=== PATIENT | male | born 1955 | race Caucasian/White ===

== ENCOUNTER 2016-10-17 18:35 | Inpatient (IN) | payer SELFPAY ==
[~2016-10-17] VITALS: Ht 186.7 cm; Wt 118.6 kg
[2016-10-17] MEDS ORDERED: Heparin 5,000 Unit/mL Inj IVPUSH PRN (19:20)
[2016-10-17] MEDS ORDERED: Heparin 5,000 Unit/mL Inj IVPUSH ONE (19:20)
[2016-10-17] MEDS ORDERED: Ondansetron 2 mg/mL 2 mL Inj IVPUSH PRN (19:20)
[2016-10-17 19:56] LABS: BASOPHILS % (AUTO) 0.6 % (0-3); EOSINOPHILS % (AUTO) 2.1 % (0-5); MONOCYTES % (AUTO) 11.5 % (4-12); Mean Corpuscular Hemoglobin 30.4 pg (27.0-35.0); Mean Corpuscular Volume 92.9 fL (81-100); Platelet Count 171 bil/L (150-400)
[2016-10-17 20:00] VITALS: BP 132/91; PULSE 94; RESP 18; O2SAT 91
--- NOTE | 2016-10-17 20:00 | NUR ---
Admission Pt states he came to urgent care due to shortness of breath and a "fast heart rate" Pt aware that he has bilat pulmonary emboli and will be given heparin IV to decrease his blood clotting time Pt agrees to notify nurse for any pain. He currently has no pain. Family at bedside. Tolerates PO fluid Telemetry is currently sinus Care ongoing
[2016-10-17 20:10] LABS: INR 1.03 ratio
[2016-10-17 20:29] LABS: TROPONIN T 0.154 ug/L (0.0-0.011)
--- NOTE | 2016-10-17 20:30 | PCM.HPMED ---
Subjective Date of Service Oct 17, 2016 Primary Provider: Admitting Physician: Cecily Vick MD Primary Care Physician: Giovanni Attending Physician: Cecily Vick MD Chief Complaint: Shortness of breath HISTORY was OBTAINED FROM PATIENT / LinguastatTECH NOTES History of present illness 61-year-old male with left leg swelling in July 2016 after playing basketball, no immobility, no trauma, presented to urgent care today for shortness of breath and palpitations for about 6 days, CT of the chest demonstrated bilateral pulmonary embolism. left leg swelling has improved but intermittently worse w/ standing. With recent back ache/pain, not bedridden, less active. no weight loss. no colonoscopy. distant left toe was reattached surgically after trauma. Review of Systems - none of the following - F/C/sick contact / wt change/ HANKINS / lightheaded / dizziness / sob / cough / cp / acid reflux / n/v/diarrhea / bleeding/bruising change in voiding / yeast infections / rash ambulates FAMILY HX no VTE, no miscarriages SOCIAL HX no smoking MEDICATIONS no medications, no testosterone Past Medical/Surgical HX left toe traumatic amputation, reattached Allergies Coded Allergies: No Known Allergies (Verified Allergy, Unknown, 10/17/16) Exam Vital Signs Vital Sign - Last Date Time Temp Pulse Resp B/P Pulse Ox O2 Delivery O2 Flow Rate FiO2 10/17/16 20:00 36.7 94 18 132/91 91 Room Air Lab and Diagnostics Labs Exam on admission room air NAD A and O x 3 mood affect WNL NC/AT no icterus no injected eyes EOMI PERRL /no pharyngeal lesions/ no oral lesions / hearing intact Supple neck CTAB equal chest rise / no accessory muscle use / speaks in full sentences / no rrw RRR S1 S2 / no mrg / 2+ radial pulses Soft nt nd + BS no hepatosplenomegaly No edema no cyanosis no ecchymosis of lower extremities No rash / no jaundice ROLON CNII-XII grossly intact symmetrical No dysmetria of bilateral upper and lower limbs Strength grossly intact of bilateral upper and lower limbs Sensation grossly symmetrical of bilateral upper and lower limbs symmetrical facies EKG SR no ST elevation Trop elevated LFTnormal Imaging PROCEDURE: CT ANGIO CHEST PULMONARY EMBOLISM ([id number]) INDICATIONS: DIFFICULTY BREATHING, EVALUATE FOR PULMONARY EMBOL TECHNIQUE: After the administration of intravenous contrast, 2 mm thick sections acquired from the pulmonary apices to the posterior costophrenic angles. 3-dimensional maximum intensity projection (MIP) coronal and sagittal reformats were then acquired through the thorax. For radiation dose reduction, the following was used: automated exposure control, adjustment of mA and/or kV according to patient size. COMPARISON: None. FINDINGS: Image quality: Excellent. Pulmonary arteries: There are numerous bilateral lobar and segmental pulmonary emboli involving the upper and lower lobes bilaterally. Lungs and pleura: Lungs are clear. No pleural effusions or pneumothorax. Central and peripheral airways are patent. Mediastinum: Heart size is normal, without pericardial effusion. There is leftward bowing of the interventricular septum suggesting increased right heart pressure No mediastinal or hilar adenopathy. Thoracic aorta is normal in caliber and enhancement. Bones and chest wall: No suspicious bony lesions. Ribs and thoracic spine appear intact throughout. Thyroid gland unremarkable. No axillary or supraclavicular adenopathy. Abdomen: Possible hepatic cyst with water attenuation on image 155 series 5 a left apically nonspecific. Additional 5 mm hypodensity in the left lobe on image 126 is too small to characterize definitively. Similar-appearing hepatic lesion on image 117 in the central liver Nonspecific 8mm left adrenal nodule, too small to characterize definitively. Moderate hiatal hernia. Incidentally noted vertebral body hemangiomas. IMPRESSION: Multiple bilateral extensive upper and lower lobe pulmonary emboli, with CT evidence of increased right heart pressure. Nonspecific left adrenal nodule. Recommend followup in one year with abdominal CT Hepatic cysts although some of these are too small to characterize definitively. Moderate hiatal hernia. Findings personally telephoned and discussed with the patient's referring clinician, Neri SANDOVAL 1833 hours 10/17/16. Result Diagram: 10/17/161943 Assessment & Plan Active issues and reason for admission Bilateral extensive PE, prior history consistent with DVT, presented with shortness of breath, left leg edema after basketball in 07/2016 -- Pending thrombophilia labs -- Pending Echo, troponin serial -- Heparin drip, anticipate Coumadin, lacks PCP lacks insurance -- No overt lung nodules consistent with cancer, consider CT abdomen pelvis to evaluate for cancer as a source of PE, pt knows to follow up w/ colonoscopy Hiatal hernia, when necessary Tums Left adrenal nodule, follow-up [address], did not discuss w/ patient yet Chronic issues known prior to admission, present on admission KATHIE, CPAP Diet cardiac diabetic-change if labs do not confirm diabetes or dyslipidemia DVT prophylaxis heparin drip Code full Disposition inpatient, needs PCP and insurance Assessment and plan were discussed with patient Cecily Vick MD Oct 17, 2016 20:29 Cecily Vick MD Oct 17, 2016 20:29
[2016-10-17] MEDS: Heparin 25K Unit/500mL 0.45 NS 25,000 UNIT in IV Premix 1 EACH IV SCH (20:43)
[2016-10-17 22:54] LABS: APPEARANCE,URINE CLEAR (CLEAR,HAZY); COLOR,URINE YELLOW (YELLOW); OCCULT BLOOD,URINE MODERATE (NEGATIVE); PH,URINE 5.5 (5.0-8.0); UROBILINOGEN,URINE NORMAL (NORMAL)
[2016-10-18] VITALS (8 sets, daily range): BP systolic 108–160; BP diastolic 73–108; PULSE 63–84; RESP 18–20; O2SAT 90–96
[2016-10-18] MEDS ORDERED: [UNRECOGNIZED DRUG - REMARK] (01:21)
[2016-10-18] MEDS: Heparin 25K Unit/500mL 0.45 NS 25,000 UNIT in IV Premix 1 EACH IV SCH ×2 (06:06→18:51)
[2016-10-18 09:20] LABS: BASOPHILS % (AUTO) 0.9 % (0-3); EOSINOPHILS % (AUTO) 3.7 % (0-5); MONOCYTES % (AUTO) 11.5 % (4-12); Mean Corpuscular Hemoglobin 31.2 pg (27.0-35.0); Mean Corpuscular Volume 92.2 fL (81-100); Platelet Count 158 bil/L (150-400)
--- NOTE | 2016-10-18 11:05 | NUR ---
Social Work: Screening Data: Pt is a 61 y/o male admitted for bilateral pulmonary embolism. Pt's PCP is not listed, pt's insurance is self pay. EMR reviewed. Pt discussed in rounds, possible d/c today or tomorrow. GAMING MANAGER will meet with pt regarding messi care application and RCA for lack of insurance. GAMING MANAGER will continue to follow if needs arise. Assessment: Pt who is independent at baseline. Plan: Pt will d/c home when medically stable. GAMING MANAGER will meet with pt regarding messi care application and RCA for lack of insurance. GAMING MANAGER will continue to follow if needs arise. MARS Carlton
--- NOTE | 2016-10-18 15:22 | PCM.PNMED ---
Subjective Date of Service Oct 18, 2016 [place] Kumar is a healthy 61-year-old male with no past medical history who presented for evaluation of shortness of breath and tachycardia. Patient reports that he has had increasing shortness of breath and tachycardia since 1 week ago. He also endorses pleuritic chest pain and dizziness, but denies any fevers,shortness of breath, weight changes, night sweats, or diaphoresis. He reports this episode began somewhat suddenly would find triggers. He had been previously healthy, has not had any surgeries and has not been immobile. At urgent care he was saturating from 93-94% on room air and was noted to be tachycardic so a CTA chest was obtained. Results showed multiple bilateral pulmonary emboli with CT evidence of right heart strain and other incidental findings. He was then directly admitted to the hospital and started on a heparin drip. This morning patient reports he is still mildly short of breath, but denies any chest pain or fevers. He reports that in June, after a basketball game, he did notice some swelling in his left lower leg behind his knee. He did not have any trauma, but this swelling has been intermittently worse since. He has also noticed some lower back pain that he did not experience before. He denies any family history of coagulopathies or bleeding disorders, denies any recent surgeries, denies any smoking history. He has not had a PCP prior to this, and reports he was not on any medications. Exam Vital Signs Vital Sign - Last Date Time Temp Pulse Resp B/P Pulse Ox O2 Delivery O2 Flow Rate FiO2 10/18/16 12:59 36.9 81 20 127/84 94 Room Air Intake and Output 10/17/16 10/17/16 10/18/16 Cumulative From/Thru 15:00 23:00 07:00 10/17/16 20:00 - 10/18/16 05:56 Intake Total 311 ml 311 ml Balance 311 ml 311 ml IV Total 311 ml 311 ml Exam General: Well-developed male in no acute distress, alert and oriented 3 HEENT: Normocephalic, atraumatic, PERRLA, EOMI, no telangiectasias noted, oropharynx nonerythematous Neck: Soft, central, nontender, full range of motion CV: Regular rate and rhythm with soft systolic murmur, no JVD noted Respiratory: CTAB, normal effort, no wheezing or crackles Abdomen: Soft, obese, nontender, nondistended normoactive bowel sounds MSK: Strength grossly intact and equal the clubbing or edema noted. There are multiple splinter hemorrhages noted under his nails Neuro: Nerves II-12 grossly intact, no tremors or focal weakness noted, gait not tested Skin: Warm, dry, intact, no rashes noted Psych: Appropriate mood and affect IVs and Medications Medications Reviewed: Medications were reviewed in detail Lab and Diagnostics Result Diagram: 10/18/1683410/18/16834 Assessment & Plan José is a healthy 61-year-old male with no past medical history who presented for evaluation of shortness of breath and tachycardia x 1 week. Found to have unprovoked bilateral pulmonary emboli. Unprovoked bilateral pulmonary emboli, POA, acute As demonstrated on CTA chest. Patient's left lower extremity edema likely due to DVT also Heparin drip per PE protocol initiated - consider bridging therapy for anticoagulation Thrombophilia labs pending- consider hematology consult Troponins initially elevated but improving, likely due to heart strain Echocardiogram pending - if further evidence of right heart strain, will consider catheterization Incidental CT findings, POA Left adrenal nodule, vertebral body hemangiomas, hepatic cyst Obstructive sleep apnea, POA Patient brought in his own CPAP Dispo: Due to patient's medical complexity and decompensation, will require at least 2 nights for stabilization and treatment Pain Evaluation: Adequate Pain Control VTE Prophylaxis: Other (heparin drip) Resuscitation Status: CPR: Attempt Resuscitation Time spent 35 minutes Attending Statement I have seen and evaluated patient at bedside, in addition to directly supervising care provided by resident physician. I agree with above documentation. Further discussion with tree loader meat Dr Ruby, yields plan of close observation, continued Heparin drip over night, and consideration of transfer tomorrow for possible percutaneous thrombectomy if laborer carpentry dock who provides this procedure is available. Kvng Hubbard DO Oct 18, 2016 15:00 Brandon Lemos DO Oct 18, 2016 18:39
--- NOTE | 2016-10-18 15:30 | DRSVH ---
[facility] [address] [place] [address] Echocardiogram Report Name: KEZIA SOARES Date: Height: 73.5 in Hospital Exam Location: [facility] Weight: 256 lb Gender: Male BSA: 2.4 m2 : 1955 Age: 61 yrs BP: 119/80 mmHg Reason For Study: Pulmonary- Embolism Ordering Physician: Performed By: Corey León Referring Physician: LELO MOREL Interpretation Summary There is mild concentric left ventricular hypertrophy. The left ventricular cavity is small. Left ventricular systolic function is normal. The ejection fraction is estimated to be 60-65%. Flattened septum is consistent with RV pressure/volume overload. Assessment of diastolic parameters indicates a relaxation abnormality of the left ventricle, consistent with normal filling pressures. The right ventricle is severely dilated. Right ventricular systolic function is severely reduced. The right ventricular systolic pressure is estimated at 43 mmHg assuming a right atrial pressure of 8 mm Hg. The left atrium is mildly dilated. The right atrium is severely dilated. There is mild to moderate tricuspid regurgitation. There is mild to moderate pulmonic regurgitation. The ascending aorta is moderately enlarged. The aortic arch is moderately enlarged. The aortic root is mildly dilated. Procedure: A two-dimensional transthoracic echocardiogram with color flow and Doppler was performed. The study quality was technically adequate. There is no prior echocardiogram noted for this patient. The patient was in normal sinus rhythm during the exam. Left Ventricle: The left ventricular cavity is small. There is mild concentric left ventricular hypertrophy. Left ventricular systolic function is normal. The ejection fraction is estimated to be 60-65%. Flattened septum is consistent with RV pressure/volume overload. Assessment of diastolic parameters indicates a relaxation abnormality of the left ventricle, consistent with normal filling pressures. Right Ventricle: The right ventricle is severely dilated. Right ventricular systolic function is severely reduced. Atria: The left atrium is mildly dilated. The right atrium is severely dilated. The interatrial septum bows toward left atrium consistent with elevated right atrial pressure. The interatrial septum is intact with no evidence for an atrial septal defect. Mitral Valve: The mitral valve is normal. There is no mitral regurgitation noted. Aortic Valve: The aortic valve is trileaflet. The aortic valve opens well. No aortic regurgitation is present. Tricuspid Valve: The tricuspid valve is normal. There is mild to moderate tricuspid regurgitation. The right ventricular systolic pressure is estimated at 43 mmHg assuming a right atrial pressure of 8 mm Hg. Pulmonic Valve: The pulmonic valve leaflets are thin and pliable; valve motion is normal. There is mild to moderate pulmonic regurgitation. Great Vessels: The aortic root is mildly dilated. The ascending aorta is moderately enlarged. The aortic arch is moderately enlarged. The pulmonary artery is normal size. The IVC is dilated (diameter is greater than 2.1 cm) yet it collapses greater than 50% with a sniff. This suggests a right atrial pressure of 8 mm Hg. Pericardium/ Pleura There is no pericardial effusion. There is no pleural effusion. MMode/2D Measurements & Calculations LVIDd: 3.7 cm RA long axis LVOT diam: 2.6 cm LVIDs: 2.3 cm LA A2 area: 28.0 cm Ao root diam FS: 36.6 % LA A4 area: 24.9 cm RA area IVSd: 1.4 cm LA length (vol) asc Aorta Diam LVPWd: 1.3 cm : 30.8 cm LA vol: 91.0 ml RA vol Ao Arch Diam (Prox LA vol index : 132.ml Trans): 4.0 cm RA : 55.0 mm2 IVC diam: 2.7 cm LV grier. diameter/BSA LV sys. diameter/BSA (cm/m^2): 1.5 (cm/m^2): 0.97 Doppler Measurements & Calculations Ao V2 max MV E max marcos MV E/A: 0.58 TR max marcos : 125.5 cm/sec : 48.0 cm/sec Med Peak E' Marcos : 295.1 cm/sec Ao max PG MV A max marcos TR max P.8 mmHg : 6.3 mmHg : 82.7 cm/sec E/E' med: 12.7 Ao mean PG Lat Peak E' Marcos LVOT Max Marcos E/E' lat: 9.3 : 99.1 cm/sec E/e' average JANELLE(I,D): 3.9 cm sev ratio MV dec time Ao V2 mean LV V1 max PG JANELLE indexed to BSA : 0.25 sec : 79.1 cm/sec (cm^2/m^2): 1.6 Ao V2 VTI LV V1 VTI: 16.6 cm JANELLE(V,D): 4.3 cm2 Reading Physician:THA
[2016-10-18] MEDS ORDERED: HYDROcodone-APAP 5-325 mg Tablet PO PRN (18:15)
--- NOTE | 2016-10-18 18:31 | NUR ---
Heparin Drip/Activity: Patients heparin drip continues to run at 18ml/hr. Patients PTT is in therapeutic range 60.3 and 63.7. His next lab draw is in the morning. Patient had ECHO today. is evaluating plan of care for the results of the ECHO. Patient has had no issues today. He has been in bed . He is using Urinal at bedside and has not been ambulating . His left swollen leg is elevated on the bed.
[2016-10-19 01:31] VITALS: BP 114/79; PULSE 68; RESP 20; O2SAT 91
--- NOTE | 2016-10-19 03:32 | NUR ---
Heparin Drip Patient on 18units/Hr Heparin drip. Labs for next ptt are scheduled for this AM. Patient was in therapeutic range of 61 at 2245. Patient sleeps with CPAP at night, has slept most of shift with no complaints of pain.
[2016-10-19 04:33] VITALS: BP 128/81; PULSE 65; RESP 20; O2SAT 92
--- NOTE | 2016-10-19 05:48 | CONS ---
[address] [address] CONSULTATION REPORT PATIENT: KEZIA SOARES : 1955 MR#: [id number] ADMIT: 10/17/2016 JOB ID: [id number] DATE OF SERVICE: 10/18/2016 CHIEF COMPLAINT: Shortness of breath. HISTORY OF PRESENT ILLNESS: The patient is a 61-year-old man with no history of hypercoagulable state. No family history of venous thromboembolism who comes in with shortness of breath for one week. His imaging demonstrated pulmonary embolism. He is remarkably hemodynamically stable given significant burden of pulmonary embolism in the main pulmonary arteries. He has no chest pain at this moment in time, and Cardiology is consulted to assist with management of this submassive pulmonary embolism with associated RV dysfunction and positive troponin. Past Medical/Surgical HX left toe traumatic amputation, reattached FAMILY HX no VTE, no miscarriages SOCIAL HX no smoking Allergies: NKDA MEDICATIONS no medications, no testosterone Review of Systems - none of the following - F/C/sick contact / wt change/ HANKINS / lightheaded / dizziness / sob / cough / cp / acid reflux / n/v/diarrhea / bleeding/bruising change in voiding / yeast infections / rash OTHERWISE 10 POINT ros IS NEGATIVE Exam Vital Signs Vital Sign - Last Date Time Temp Pulse Resp B/P Pulse Ox O2 Delivery O2 Flow Rate FiO2 10/17/16 20:00 36.7 94 18 132/91 91 Room Air WNWD man NAD eyes: no scleral icterus neck supple no Lymphadenopathy, no carotid bruit heart nl s1 and s2, no m/r or gallops lung CTA b/l abdomen soft + bs, no HSM ext trace edema b/l neuro - non focal skin - no rashes or lesions LABORATORY AND DIAGNOSTICS REVIEW: EKG SR no ST elevation Trop elevated LFTnormal Imaging PROCEDURE: CT ANGIO CHEST PULMONARY EMBOLISM ([id number]) INDICATIONS: DIFFICULTY BREATHING, EVALUATE FOR PULMONARY EMBOL TECHNIQUE: After the administration of intravenous contrast, 2 mm thick sections acquired from the pulmonary apices to the posterior costophrenic angles. 3-dimensional maximum intensity projection (MIP) coronal and sagittal reformats were then acquired through the thorax. For radiation dose reduction, the following was used: automated exposure control, adjustment of mA and/or kV according to patient size. COMPARISON: None. FINDINGS: Image quality: Excellent. Pulmonary arteries: There are numerous bilateral lobar and segmental pulmonary emboli involving the upper and lower lobes bilaterally. Lungs and pleura: Lungs are clear. No pleural effusions or pneumothorax. Central and peripheral airways are patent. Mediastinum: Heart size is normal, without pericardial effusion. There is leftward bowing of the interventricular septum suggesting increased right heart pressure No mediastinal or hilar adenopathy. Thoracic aorta is normal in caliber and enhancement. Bones and chest wall: No suspicious bony lesions. Ribs and thoracic spine appear intact throughout. Thyroid gland unremarkable. No axillary or supraclavicular adenopathy. Abdomen: Possible hepatic cyst with water attenuation on image 155 series 5 a left apically nonspecific. Additional 5 mm hypodensity in the left lobe on image 126 is too small to characterize definitively. Similar-appearing hepatic lesion on image 117 in the central liver Nonspecific 8mm left adrenal nodule, too small to characterize definitively. Moderate hiatal hernia. Incidentally noted vertebral body hemangiomas. IMPRESSION: Multiple bilateral extensive upper and lower lobe pulmonary emboli, with CT evidence of increased right heart pressure. Nonspecific left adrenal nodule. Recommend followup in one year with abdominal CT Hepatic cysts although some of these are too small to characterize definitively. Moderate hiatal hernia. ASSESSMENT AND PLAN: This is an 87-year-old man with submassive pulmonary embolism. He is remarkably hemodynamically stable in light of venous thromboembolism burden. He is saturating 90% on room air and his blood pressure is 122/78. His exam is benign. His troponins are mildly elevated with troponin T of 0.028. Creatinine 1.2. Unfortunately, echocardiogram shows severely dilated RV with severely reduced RV function. Estimated pulmonary artery systolic pressure of 43 mmHg. I reviewed both his echocardiogram and his CT scan. I visited with the patient. We had a sybil conversation about the life threatening nature of venous thromboembolism and also about his therapeutic options. Right now he is on heparin drip and is tolerating this medication well. His PTT's are closely monitored and appear to be in the therapeutic range. He does not have hemodynamic compromise so he does not meet criteria for urgent lytics. I explained to him that the direction on doctors who recommend lysis in submassive pulmonary embolism but that it comes with about a 5% risk of intracranial hemorrhage. We also discussed the technique of catheter directed thrombolysis. Unfortunately, my partner who is skilled in catheter directed and ultrasound directed accelerated thrombolysis is not available right now for this case. So the patient options are either just do heparin drip with transition to oral anticoagulation or be transferred to an alternative higher level of care to undergo catheter directed thrombolysis with catheter directed ultrasound for accelerated techniques. I contacted my colleage Dr. Jesus Irene at [facility] [place], and his partner Dr. Sterling is b[facility] induction; he is skilled in catheter directed thrombolysis. I think the best idea is to transfer him to [facility] for further care. Thank you very much for the opportunity to participate in this patient's care. NIKKI
[2016-10-19 06:02] VITALS: PULSE 82
[2016-10-19 07:07] LABS: BASOPHILS % (AUTO) 1.1 % (0-3); EOSINOPHILS % (AUTO) 5.1 % (0-5); Mean Corpuscular Hemoglobin 30.8 pg (27.0-35.0); Mean Corpuscular Volume 91.9 fL (81-100); NEUTROPHILS % (AUTO) 47.9 % (40-74); Platelet Count 149 bil/L (150-400)
[2016-10-19] MEDS: Heparin 25K Unit/500mL 0.45 NS 25,000 UNIT in IV Premix 1 EACH IV SCH (07:46)
[2016-10-19 10:15] VITALS: BP 123/86; PULSE 72; RESP 20; O2SAT 95
[2016-10-19 10:36] VITALS: PULSE 67
--- NOTE | 2016-10-19 10:57 | NUR ---
Social Work: Brief Note Data: Pt is on day 2 of hospitalization. EMR reviewed, pt discussed in rounds. DRIVER GUARD notified pt will be transferring to [facility] for a higher level of care. DRIVER GUARD met with pt and gave him the [facility] care application. No further DRIVER GUARD needs at this time. DRIVER GUARD will continue to follow if needs arise. Assessment: Pt who is independent at baseline. Plan: Pt will transfer to [facility] today, per nursing staff. No further DRIVER GUARD needs at this time. DRIVER GUARD will continue to follow if needs arise. MARS Carlton
[2016-10-19 12:07] LABS: Activated Protein C Resistance 3.3 ratio (2.0-3.5); Protein C-Functional 103 % (73-180)
--- NOTE | 2016-10-19 13:35 | PCM.DIMED ---
Discharge Instructions Date of Service Oct 19, 2016 Dates of Hospitalization Oct 17, 2016 at 19:04 Discharge Diagnosis Discharge Diagnosis Unprovoked bilateral pulmonary emboli with cor pulmonale, POA, acute Incidental CT findings, POA Left adrenal nodule, vertebral body hemangiomas, hepatic cyst Obstructive sleep apnea, POA Diet Other (per transfer facility) Activity Other (per transfer facility) Patient Instructions You are being transferred to [facility] for further acute care. Follow-up Provider: Kvng Hubbard DO Follow-up with PCP in: 1 week (after discharge from [facility]) Kvng Hubbard DO Oct 19, 2016 13:35
--- NOTE | 2016-10-19 13:49 | PCM.DC.MED ---
Discharge Summary Date of Service Oct 19, 2016 Dates of Hospitalization Date of Hospital Admission Oct 17, 2016 at 19:04 Date of Discharge: Oct 19, 2016 Providers: Admitting Physician: Cecily Vick MD Primary Care Physician: Giovanni Attending Physician: Cecily Vick MD Diagnosis at Time of Discharge Diagnosis at Time of Discharge Unprovoked bilateral pulmonary emboli with cor pulmonale, POA, acute Incidental CT findings, POA Left adrenal nodule, vertebral body hemangiomas, hepatic cyst Obstructive sleep apnea, POA Consultations Cardiology, Dr. Lisbet Ruby: ASSESSMENT AND PLAN: This is an 87-year-old man with submassive pulmonary embolism. He is remarkably hemodynamically stable in light of venous thromboembolism burden. He is saturating 90% on room air and his blood pressure is 122/78. His exam is benign. His troponins are mildly elevated with troponin T of 0.028. Creatinine 1.2. Unfortunately, echocardiogram shows severely dilated RV with severely reduced RV function. Estimated pulmonary artery systolic pressure of 43 mmHg. I reviewed both his echocardiogram and his CT scan. I visited with the patient. We had a sybil conversation about the life threatening nature of venous thromboembolism and also about his therapeutic options. Right now he is on heparin drip and is tolerating this medication well. His PTT's are closely monitored and appear to be in the therapeutic range. He does not have hemodynamic compromise so he does not meet criteria for urgent lytics. I explained to him that the direction on doctors who recommend lysis in submassive pulmonary embolism but that it comes with about a 5% risk of intracranial hemorrhage. We also discussed the technique of catheter directed thrombolysis. Unfortunately, my partner who is skilled in catheter directed and ultrasound directed accelerated thrombolysis is not available right now for this case. An interventional colleague was on duty. She is not skilled in those techniques. So the patient options are either just do heparin drip with transition to oral anticoagulation or be transferred to an alternative higher level of care to undergo catheter directed thrombolysis with catheter directed ultrasound for accelerated techniques. Procedures XRay, CTs & MRIs PROCEDURE: CT ANGIO CHEST PULMONARY EMBOLISM ([id number]) INDICATIONS: DIFFICULTY BREATHING, EVALUATE FOR PULMONARY EMBOL COMPARISON: None. FINDINGS: Image quality: Excellent. Pulmonary arteries: There are numerous bilateral lobar and segmental pulmonary emboli involving the upper and lower lobes bilaterally. Lungs and pleura: Lungs are clear. No pleural effusions or pneumothorax. Central and peripheral airways are patent. Mediastinum: Heart size is normal, without pericardial effusion. There is leftward bowing of the interventricular septum suggesting increased right heart pressure No mediastinal or hilar adenopathy. Thoracic aorta is normal in caliber and enhancement. Bones and chest wall: No suspicious bony lesions. Ribs and thoracic spine appear intact throughout. Thyroid gland unremarkable. No axillary or supraclavicular adenopathy. Abdomen: Possible hepatic cyst with water attenuation on image 155 series 5 a left apically nonspecific. Additional 5 mm hypodensity in the left lobe on image 126 is too small to characterize definitively. Similar-appearing hepatic lesion on image 117 in the central liver Nonspecific 8mm left adrenal nodule, too small to characterize definitively. Moderate hiatal hernia. Incidentally noted vertebral body hemangiomas. IMPRESSION: Multiple bilateral extensive upper and lower lobe pulmonary emboli, with CT evidence of increased right heart pressure. Nonspecific left adrenal nodule. Recommend followup in one year with abdominal CT Hepatic cysts although some of these are too small to characterize definitively. Moderate hiatal hernia. Cardiac Echo Impression Interpretation Summary There is mild concentric left ventricular hypertrophy. The left ventricular cavity is small. Left ventricular systolic function is normal. The ejection fraction is estimated to be 60-65%. Flattened septum is consistent with RV pressure/volume overload. Assessment of diastolic parameters indicates a relaxation abnormality of the left ventricle, consistent with normal filling pressures. The right ventricle is severely dilated. Right ventricular systolic function is severely reduced. The right ventricular systolic pressure is estimated at 43 mmHg assuming a right atrial pressure of 8 mm Hg. The left atrium is mildly dilated. The right atrium is severely dilated. There is mild to moderate tricuspid regurgitation. There is mild to moderate pulmonic regurgitation. The ascending aorta is moderately enlarged. The aortic arch is moderately enlarged. The aortic root is mildly dilated. Brief History José is a healthy 61-year-old male with no past medical history who presented for evaluation of shortness of breath and tachycardia. Patient reports that he has had increasing shortness of breath and tachycardia since 1 week ago. He also endorses pleuritic chest pain and dizziness, but denies any fevers,shortness of breath, weight changes, night sweats, or diaphoresis. He reports this episode began somewhat suddenly would find triggers. He had been previously healthy, has not had any surgeries and has not been immobile. At urgent care he was saturating from 93-94% on room air and was noted to be tachycardic so a CTA chest was obtained. Results showed multiple bilateral pulmonary emboli with CT evidence of right heart strain and other incidental findings. He was then directly admitted to the hospital and started on a heparin drip. This morning patient reports he is still mildly short of breath, but denies any chest pain or fevers. He reports that in June, after a basketball game, he did notice some swelling in his left lower leg behind his knee. He did not have any trauma, but this swelling has been intermittently worse since. He has also noticed some lower back pain that he did not experience before. He denies any family history of coagulopathies or bleeding disorders, denies any recent surgeries, denies any smoking history. He has not had a PCP prior to this, and reports he was not on any medications. Hospital Course José is a healthy 61-year-old male with no past medical history who presented for evaluation of shortness of breath and tachycardia x 1 week. Found to have unprovoked bilateral pulmonary emboli on CTA. Was initiated on a Heparin drip per protocol. Subsequent Echocardiogram revealed severe RV and RA dilatation. Patient continued to be stable and fairly asymptomatic, but Cardiology recommended catheter directed thrombolysis, which was not available at this facility currently, so he was transferred to [facility] for higher level of care. Unprovoked bilateral pulmonary emboli, POA, acute As demonstrated on CTA chest. Patient's left lower extremity edema as reported from July is suspicious for a DVT, although that has resolved. Heparin drip per PE protocol initiated Troponins initially elevated but improving, likely due to heart strain Echocardiogram revealed severe RV and RA dilatation. Thrombophilia labs pending. Incidental CT findings, POA Left adrenal nodule, vertebral body hemangiomas, hepatic cyst Obstructive sleep apnea, POA Patient brought in his own CPAP Exam Vital Signs (Last) Date Time Temp Pulse Resp B/P Pulse Ox O2 Delivery O2 Flow Rate FiO2 10/19/16 10:36 67 10/19/16 10:15 36.4 20 123/86 95 Room Air Exam General: Well-developed male in no acute distress, alert and oriented 3 HEENT: Normocephalic, atraumatic, PERRLA, EOMI, no telangiectasias noted, oropharynx nonerythematous Neck: Soft, central, nontender, full range of motion CV: Regular rate and rhythm with soft systolic murmur, mild JVD noted Respiratory: CTAB, normal effort, no wheezing or crackles Abdomen: Soft, obese, nontender, nondistended normoactive bowel sounds MSK: Strength grossly intact and equal the clubbing or edema noted. There are multiple splinter hemorrhages noted under his nails Neuro: CN2-12 grossly intact, no tremors or focal weakness noted, gait not tested Skin: Warm, dry, intact, no rashes noted Psych: Appropriate mood and affect Test 10/17/16 19:44 10/17/16 22:00 10/18/16 01:05 10/18/16 14:26 Prothrombin Time 11.0sec (8.1-12.5) Prothromb Time International Ratio 1.03ratio Functional Protein C 103% (73-180) Activated Protein C Resistance 3.3ratio (2.0-3.5) Functional Protein S 129% (63-140) Free Protein S 129% (57-157) Total Protein S 170% (60-150) Hemoglobin A1c 5.7% (4.8-5.6) Triglycerides Level 98mg/dL (0-149) Cholesterol Level 218mg/dL (100-199) LDL Cholesterol, Calculated 140.400mg/dL (0-99) VLDL Cholesterol 19.600mg/dL HDL Cholesterol 58mg/dL (>39) Cholesterol/HDL Ratio 3.76 (0.0-4.4) Anti-Cardiolipin IgG Antibody < 9GPL U/mL (0-14) Anti-Cardiolipin IgA Antibody < 9APL U/mL (0-11) Anti-Cardiolipin IgM Antibody < 9MPL U/mL (0-12) Urine Color Yellow (YELLOW) Urine Appearance Clear (CLEAR,HAZY) Urine pH 5.5 (5.0-8.0) Urine Specific [place] 1.020 (1.003-1.035) Urine Protein Negativemg/dL (NEG,TRACE) Urine Glucose (UA) Negativemg/dL (NEGATIVE) Urine Ketones Negativemg/dL (NEGATIVE) Urine Occult Blood Moderate (NEGATIVE) Urine Nitrite Negative (NEGATIVE) Urine Bilirubin Negative (NEGATIVE) Urine Urobilinogen Normalmg/dL (NORMAL) Urine Leukocyte Esterase Negative (NEGATIVE) Urine RBC 0-2/hpf (0-2) Urine WBC 0-5/hpf (0-5) Urine Epithelial Cells Occasional/hpf (NONE-MOD) Urine Crystals None seen (NONE SEEN) Urine Bacteria None/hpf (NONE-FEW) Urine Hyaline Casts None/lpf (NONE) Urine Granular Casts None seen (NONE SEEN) Urine Waxy Casts None seen (NONE SEEN) Urine Red Blood Cell Casts None seen (NONE SEEN) Urine White Blood Cell Casts None seen (NONE SEEN) Urine Mucus None seen (None Seen) Urine Trichomonas None seen (NONE SEEN) Urine Yeast None (NONE SEEN) Urine Culture Reflexed Not indicated Hold Blue Top Tube Received (Received) Hold [place] Top Tube Received (Received) Troponin T 0.014ug/L (0.0-0.011) Test 10/19/16 06:05 White Blood Count 5.5th/mm3 (3.8-10.1) Red Blood Count 4.68mil/mm3 (4.40-5.80) Hemoglobin 14.4g/dL (13.8-17.2) Hematocrit 43.0% (41.0-50.0) Mean Corpuscular Volume 91.9fL (81-100) Mean Corpuscular Hemoglobin 30.8pg (27.0-35.0) Mean Corpuscular Hemoglobin Concent 33.5% (32.0-37.0) Red Cell Distribution Width 13.7% (12.3-15.4) Platelet Count 149bil/L (150-400) Neutrophils (%) (Auto) 47.9% (40-74) Lymphocytes (%) (Auto) 32.7% (14-46) Monocytes (%) (Auto) 13.0% (4-12) Eosinophils (%) (Auto) 5.1% (0-5) Basophils (%) (Auto) 1.1% (0-3) Activated Partial Thromboplast Time 65.3sec (22.8-33.0) Sodium Level 139mEq/L (134-144) Potassium Level 4.8mEq/L (3.5-5.2) Chloride Level 105mEq/L (97-108) Carbon Dioxide Level 18mmol/L (18-29) Blood Urea Nitrogen 19mg/dL (8-27) Creatinine 1.10mg/dL (0.76-1.27) Estimat Glomerular Filtration Rate 72mL/min (>59) Glucose Level 97mg/dL (60-99) Calcium Level 9.0mg/dL (8.5-10.1) Total Bilirubin 0.6mg/dL (0.0-1.2) Aspartate Amino Transf (AST/SGOT) 37U/L (0-50) Alanine Aminotransferase (ALT/SGPT) 33U/L (0-44) Alkaline Phosphatase 74U/L (25-160) Total Protein 6.3g/dL (6.4-8.4) Albumin 3.8g/dL (3.4-5.0) Discharge Medications No Active Prescriptions or Reported Meds Followup Plan Disposition: Transfer to [facility] Discharge Diet: Other (per transfer facility) Discharge Activity: Other (per transfer facility) Patient Instructions You are being transferred to [facility] for further acute care. Follow-up Provider: Kvng Hubbard DO Follow-up with PCP in: 1 week (after discharge from [place]) Attending Statement I have seen and evaluated Mr. Reyna at his bedside today, in addition to directly supervising the care provided by the resident physician. I agree with the above documentation as it accurately reflects my examination, assessment and plans. Ji Case M.D. copies to: Kvng Hubbard DO Kvng Hubbard DO Oct 19, 2016 13:49 Fernando Case MD Oct 19, 2016 14:35
[2016-10-19 14:30] VITALS: BP 143/95; PULSE 68; RESP 18; O2SAT 94
--- NOTE | 2016-10-19 16:37 | NUR ---
Transfer to [place] Pt was transported to [facility] at 1605 by [facility] with Heparin drip at 18 units/hr. No s/s of distress at time of transfer. Report was called to DAVID Carcamo at [place] at 1551.
[2016-10-21 11:07] LABS: Protein C Antigen 75 % (60-150)
== END 2016-10-19 16:28 | disposition short-term general hospital (02) | DRG 175 ==
LOC: OBSVTOIN 19:04 → MPC 19:04
PROVIDERS: ADMIT Urology; ATTEND Urology
DX: I26.09 Other pulmonary embolism with acute cor pulmonale (principal); Z86.718 Personal history of other venous thrombosis and embolism; K44.9 Diaphragmatic hernia without obstruction or gangrene; G47.33 Obstructive sleep apnea (adult) (pediatric)